=== PATIENT | female | born 1970 | race Hispanic/Latino ===

== ENCOUNTER 2024-03-18 13:27 | Outpatient (RCR) | payer BC | END 2024-03-24 | LOC: PT 13:27 | PROVIDERS: ATTEND Orthopaedic Surgery Sports Medicine | DX: S83.251A Bucket-handle tear of lateral meniscus, current injury, right knee, initial encounter (principal) ==

== ENCOUNTER 2024-05-15 08:00 | Outpatient (RCR) | payer BC | END 2024-05-24 | LOC: PT 08:00 | PROVIDERS: ATTEND Orthopaedic Surgery Sports Medicine | DX: S83.251A Bucket-handle tear of lateral meniscus, current injury, right knee, initial encounter (principal) ==